=== PATIENT | female | born 1975 | race African-American/Black ===

== ENCOUNTER 2017-06-01 16:28 | Inpatient (IN) | payer BC ==
[~2017-06-01] VITALS: Ht 165.1 cm; Wt 81.6 kg
[2017-06-01 17:09] VITALS: BP 125/68
[2017-06-01 17:17] LABS: APPEARANCE,URINE CLEAR; KETONES,URINE 2+ (NEGATIVE); LEUKOCYTE ESTERASE ,URINE 2+ (NEGATIVE); MEAN CORPUSCULAR HEMOGLOBIN 21.8 PG (27.0-31.0); MEAN CORPUSCULAR HGB CONC 31.3 G/DL (32.0-36.0); MEAN CORPUSCULAR VOLUME 70 FL (80-99); MEAN PLATELET VOLUME 10.2 FL (6.5-10.1); NITRITE,URINE NEGATIVE (NEGATIVE); PH,URINE 6.5 (4.5-8.0); PLATELET COUNT 188 K/UL (150-450); PROTEIN,URINE 3+ (NEGATIVE); UROBILINOGEN,URINE 1 MG/DL (0.0-1.0); WHITE BLOOD COUNT 18.4 K/UL (4.8-10.8)
--- NOTE | 2017-06-01 17:30 | Emergency Room Report ---
History of Present Illness General Chief Complaint: Abdominal Pain Source: Patient Present Illness HPI [id number] s/p recent embolectomy done 05/29 for uterine fibroids sent for post-op pain. Patient denies nausea/vomiting, fever/chills, diarrhea Dr Ortiz requesting labs, CTAP with IV contrast, analgesia Requests endorsement for Dr Vazquez for admission Allergies: Coded Allergies: PROCHLORPERAZINE (Verified Allergy, Unknown, 06/01/17) SHELLFISH DERIVED (Verified Allergy, Unknown, 06/01/17) Patient History Social History: Denies: alcohol use, drug use, smoking Last Menstrual Period: 04/05/17 Now: No Nursing Documentation-[facility] Past Medical History: No Stated History Review of Systems All Other Systems: negative except mentioned in HPI Physical Exam Vital Signs Date Time Temp Pulse Resp B/P Pulse Ox O2 Delivery O2 Flow Rate FiO2 06/01/17 16:31 98.1 93 15 138/71 98 Room Air Sp02 EP Interpretation: reviewed, normal General Appearance: normal inspection, well appearing, no apparent distress, alert, GCS 15, non-toxic Head: normocephalic, atraumatic Eyes: bilateral eye EOMI, bilateral eye PERRL ENT: normal ENT inspection, hearing grossly normal, normal voice Neck: normal inspection, full range of motion, supple, no bony tend Respiratory: normal inspection, lungs clear, normal breath sounds, no respiratory distress, no retraction, no wheezing Cardiovascular #1: regular rate, rhythm, no edema Gastrointestinal: normal inspection, normal bowel sounds, non tender, soft, no guarding, no hernia, other - Right groin: post-op scar noted. Healing well. No infection. Steri strips in place Genitourinary: no CVA tenderness Musculoskeletal: normal inspection, back normal, normal range of motion, Jefry' s Sign negative Neurologic: normal inspection, alert, oriented x3, responsive, educational psychology professor III-XII nml as tested, motor strength/tone normal, speech normal Psychiatric: normal inspection, judgement/insight normal, mood/affect normal Skin: normal inspection, normal color, no rash Lymphatic: normal inspection Medical Decision Making Diagnostic Impression: Primary Impression: Abdominal pain Qualified Codes: R10.84 - Generalized abdominal pain Additional Impressions: KYLEIGH (acute kidney injury) Hypokalemia ER Course Abd pain post-emblectomy - VSS. Afebrile. - Abd exam non-focal. - Labs: Leuks 18K. HypoK repleted. UA with hematuria. No raquel UTI. - Elevated leuks but vitals stable, non septic appearing. - CTAP: Done withOUT IV contrast . Patient has solitary kidney. Having "CT with IV contrast soon for another reason." Refused contrast. Results: No abscess. Normal post-op changes. - Empiric Abx given. Blood Cx pending - Dr Ortiz informed of results. Endorsed to Dr Vazquez for med/surg admit at 630pm Last Vital Signs Date Time Temp Pulse Resp B/P Pulse Ox O2 Delivery O2 Flow Rate FiO2 06/01/17 17:09 98.1 83 15 125/68 98 Room Air Status: improved Disposition: ADMITTED INPATIENT Condition: Serious ENZO MALONEY M.D. Jun 01, 2017 17:30
[2017-06-01] MEDS ORDERED: Vancomycin 1.5 GM in D5W 325 ML IVPB STA (17:31)
[2017-06-01 17:33] LABS: BACTERIA,URINE FEW /HPF; SQUAMOUS EPITHELIAL CELL,UR FEW /LPF (NONE/OCC)
[2017-06-01] MEDS ORDERED: Zosyn 3.375gm inj ONE (17:36)
[2017-06-01 17:44] LABS: ALANINE AMINOTRANSFERASE 9 U/L (3-33); ANION GAP 12 (5-15); ASPARTATE AMINO TRANSFERASE 12 U/L (5-40); CALCIUM 9.2 mg/dL (8.6-10.2); CARBON DIOXIDE 28 mEQ/L (20-30); CHLORIDE 97 mEQ/L (98-107); CREATININE 1.1 mg/dL (0.5-0.9); GLOMERULAR FILTRATION RATE > 60 mL/min (>60); HEMOLYSIS 0; LIPASE 30 U/L (< 60); SODIUM 137 mEQ/L (135-145); TOTAL PROTEIN 7.3 g/dL (6.6-8.7)
[2017-06-01] MEDS ORDERED: Piperacillin/Tazobactam 3.375 GM in NS 110 ML IVPB ONE (17:45)
[2017-06-01] MEDS ORDERED: Vancomycin 750mg Inj IVPB ONE (17:46)
[2017-06-01] MEDS ORDERED: KCl 10% 40mEq/30ml liquid ORAL ONE (18:30)
[2017-06-01 18:39] VITALS: BP 129/73
[2017-06-01] MEDS ORDERED: OXYCODONE-ACET1 EAC3 ORAL (18:39)
[2017-06-01] MEDS ORDERED: KETOROLAC TROME10 MG PO (18:39)
[2017-06-01] MEDS ORDERED: AMOX TR-K CLV1 EAC2 ORAL (18:39)
[2017-06-01] MEDS ORDERED: MIRALAX17 G2 ORAL (18:39)
[2017-06-01 19:11] LABS: ANISOCYTOSIS 1+; BAND NEUTROPHILS % (MANUAL) 2 % (0-8); BASOPHILS % (MANUAL) 0 % (0-2); EOSINOPHILS % (MANUAL) 1 % (0-3); HYPOCHROMASIA 1+; LYMPHOCYTES % (MANUAL) 19 % (20-45); NEUTROPHILS % (MANUAL) 75 % (45-75); PLATELET ESTIMATE ADEQUATE; PLATELET MORPHOLOGY NORMAL; TOTAL CELLS COUNTED 100
[2017-06-01] MEDS: Norco 5mg/325mg tab ORAL PRN (19:12)
[2017-06-01] MEDS ORDERED: D5NS 1,000 ML IV SCH (19:30)
[2017-06-01 20:00] VITALS: BP_SYST 111; BP_SYST 137; BP_DIAS 52; BP_DIAS 82
[2017-06-01] MEDS ORDERED: HYDROmorphone 1mg/ml Carpuject IVP PRN ×2 (20:00→21:00)
[2017-06-01] MEDS ORDERED: Zosyn 3.375gm q8h **Extended infusion IVPB SCH ×2 (23:00)
[2017-06-01] MEDS: Norco 10mg/325mg tab ORAL PRN (23:13)
[2017-06-01] MEDS: Potassium Chloride 30 MEQ in Dextrose 5%/Lactated Ringer's 1,000 ML IV SCH (23:16)
[2017-06-02] VITALS: BP 122/72
[2017-06-02] MEDS ORDERED: ceFAZolin sod 1 GM in D5W 55 ML IVPB SCH ×2
[2017-06-02 04:00] VITALS: BP 127/82
[2017-06-02] MEDS: Potassium Chloride 30 MEQ in Dextrose 5%/Lactated Ringer's 1,000 ML IV SCH ×2 (05:15→11:32)
[2017-06-02] MEDS ORDERED: Vancomycin 1gm/D5W 275ml IVPB SCH ×2 (06:00)
--- NOTE | 2017-06-02 07:26 | Consultation ---
Consult Note Consult Note patient seen and examined see full dictation thanks CHAGO BROWNING Jun 02, 2017 07:26
[2017-06-02 07:28] LABS: MEAN CORPUSCULAR HEMOGLOBIN 21.8 PG (27.0-31.0); MEAN CORPUSCULAR HGB CONC 31.1 G/DL (32.0-36.0); MEAN CORPUSCULAR VOLUME 70 FL (80-99); MEAN PLATELET VOLUME 10.9 FL (6.5-10.1); PLATELET COUNT 196 K/UL (150-450); RED BLOOD COUNT 5.09 M/UL (4.20-5.40); RED CELL DISTRIBUTION WIDTH 13.2 % (11.6-14.8); WHITE BLOOD COUNT 18.8 K/UL (4.8-10.8)
[2017-06-02] MEDS ORDERED: Metoclopramide 10mg/2ml Inj IVP PRN (07:30)
[2017-06-02 07:48] LABS: ALBUMIN/GLOBULIN RATIO 1.1 (1.0-2.7); CALCIUM 9.1 mg/dL (8.6-10.2); CREATININE 2.2 mg/dL (0.5-0.9); GLOMERULAR FILTRATION RATE 29.7 mL/min (>60); POTASSIUM 3.7 mEQ/L (3.4-4.9)
[2017-06-02] MEDS: Norco 5mg/325mg tab ORAL PRN ×2 (07:50→11:59)
[2017-06-02 07:51] LABS: THYROID STIMULATING HORMONE 0.759 uIU/mL (0.300-4.500)
[2017-06-02] MEDS: Zosyn 3.375gm q8h **Extended infusion IVPB SCH ×6 (08:00→23:33)
[2017-06-02] MEDS ORDERED: Miralax 17gm pkt ORAL PRN (08:30)
[2017-06-02 08:36] VITALS: BP 143/75
--- NOTE | 2017-06-02 08:40 | General Surgery Progress Note ---
General Surgery-Progress Note Subjective Day of Surgery: may 29 Reason for Consult abdominal pain, nausea Procedure Performed uterine artery embolization Symptoms: improved, tolerating diet, voiding well, passing flatus Additional Comments had BM yesterday, some nausea today Objective Last 24 Hour Vital Signs Date Time Temp Pulse Resp B/P Pulse Ox O2 Delivery O2 Flow Rate FiO2 06/02/17 04:00 98.4 74 18 127/82 98 Room Air 06/02/17 00:12 98.1 06/02/17 00:00 98.7 72 18 122/72 96 Room Air 06/01/17 20:11 98.1 06/01/17 20:00 98.8 78 18 137/82 97 Room Air 06/01/17 20:00 98.4 61 18 111/52 99 Room Air 06/01/17 18:55 98.1 81 16 129/73 98 Room Air 06/01/17 18:39 98.1 81 16 129/73 98 Room Air 06/01/17 17:09 98.1 83 15 125/68 98 Room Air 06/01/17 16:31 98.1 93 15 138/71 98 Room Air I&O Intake and Output 06/01/17 06/02/17 19:00 07:00 Intake Total 1100.0 ml Balance 1100.0 ml Intake Oral 840 ml IV Total 260.0 ml # Voids 1 2 Dressing: dry Wound: clean Drains: none Cardiovascular: RSR Respiratory: clear Abdomen: soft, flat, scaphoid, tenderness, present bowel sounds Extremities: no edema, no tenderness, no cyanosis, pulses Laboratory Tests Test 06/01/17 16:50 06/02/17 06:50 White Blood Count 18.4 K/UL (4.8-10.8) H 18.8 K/UL (4.8-10.8) H Red Blood Count 5.10 M/UL (4.20-5.40) 5.09 M/UL (4.20-5.40) Hemoglobin 11.1 G/DL (12.0-16.0) L 11.1 G/DL (12.0-16.0) L Hematocrit 35.5 % (37.0-47.0) L 35.6 % (37.0-47.0) L Mean Corpuscular Volume 70 FL (80-99) L 70 FL (80-99) L Mean Corpuscular Hemoglobin 21.8 PG (27.0-31.0) L 21.8 PG (27.0-31.0) L Mean Corpuscular Hemoglobin Concent 31.3 G/DL (32.0-36.0) L 31.1 G/DL (32.0-36.0) L Red Cell Distribution Width 13.0 % (11.6-14.8) 13.2 % (11.6-14.8) Platelet Count 188 K/UL (150-450) 196 K/UL (150-450) Mean Platelet Volume 10.2 FL (6.5-10.1) H 10.9 FL (6.5-10.1) H Neutrophils (%) (Auto) % (45.0-75.0) % (45.0-75.0) Lymphocytes (%) (Auto) % (20.0-45.0) % (20.0-45.0) Monocytes (%) (Auto) % (1.0-10.0) % (1.0-10.0) Eosinophils (%) (Auto) % (0.0-3.0) % (0.0-3.0) Basophils (%) (Auto) % (0.0-2.0) % (0.0-2.0) Differential Total Cells Counted 100 Neutrophils % (Manual) 75 % (45-75) Pending Lymphocytes % (Manual) 19 % (20-45) L Pending Monocytes % (Manual) 3 % (1-10) Eosinophils % (Manual) 1 % (0-3) Basophils % (Manual) 0 % (0-2) Band Neutrophils 2 % (0-8) Platelet Estimate Adequate Pending Platelet Morphology Normal Pending Hypochromasia 1+ Anisocytosis 1+ Urine Color Pale yellow Urine Appearance Clear Urine pH 6.5 (4.5-8.0) Urine Specific [place] 1.010 (1.005-1.035) Urine Protein 3+ (NEGATIVE) H Urine Glucose (UA) Negative (NEGATIVE) Urine Ketones 2+ (NEGATIVE) H Urine Occult Blood 5+ (NEGATIVE) H Urine Nitrite Negative (NEGATIVE) Urine Bilirubin Negative (NEGATIVE) Urine Urobilinogen 1 MG/DL (0.0-1.0) H Urine Leukocyte Esterase 2+ (NEGATIVE) H Urine RBC 5-10 /HPF (0 - 2) H Urine WBC 2-4 /HPF (0 - 2) Urine Squamous Epithelial Cells Few /LPF (NONE/OCC) Urine Bacteria Few /HPF (NONE) Urine HCG, Qualitative Negative Sodium Level 137 mEQ/L (135-145) 136 mEQ/L (135-145) Potassium Level 3.0 mEQ/L (3.4-4.9) L 3.7 mEQ/L (3.4-4.9) Chloride Level 97 mEQ/L (98-107) L 98 mEQ/L (98-107) Carbon Dioxide Level 28 mEQ/L (20-30) 28 mEQ/L (20-30) Anion Gap 12 (5-15) 10 (5-15) Blood Urea Nitrogen 6 mg/dL (7-23) L 9 mg/dL (7-23) Creatinine 1.1 mg/dL (0.5-0.9) H 2.2 mg/dL (0.5-0.9) #H Estimat Glomerular Filtration Rate > 60 mL/min (>60) 29.7 mL/min (>60) Glucose Level 111 mg/dL (74-106) H 113 mg/dL (74-106) H Calcium Level 9.2 mg/dL (8.6-10.2) 9.1 mg/dL (8.6-10.2) Total Bilirubin 0.6 mg/dL (0.0-1.2) 0.7 mg/dL (0.0-1.2) Aspartate Amino Transf (AST/SGOT) 12 U/L (5-40) 15 U/L (5-40) Alanine Aminotransferase (ALT/SGPT) 9 U/L (3-33) 9 U/L (3-33) Alkaline Phosphatase 73 U/L (35-104) 71 U/L (35-104) Total Protein 7.3 g/dL (6.6-8.7) 7.0 g/dL (6.6-8.7) Albumin 3.8 g/dL (3.5-5.2) 3.7 g/dL (3.5-5.2) Globulin 3.5 g/dL 3.3 g/dL Albumin/Globulin Ratio 1.0 (1.0-2.7) 1.1 (1.0-2.7) Lipase 30 U/L (< 60) Thyroid Stimulating Hormone (TSH) 0.759 uIU/mL (0.300-4.500) Additional Comments afebrile, leukocytosis common post uae Assessment Post-op Diagnosis pain controlled c oral meds, nausea persists, controlled now Plan Additional Comments laxatives, toradol Andrez Ortiz MD Jun 02, 2017 08:40
[2017-06-02] MEDS ORDERED: Ketorolac 30mg Inj IV SCH (09:00)
[2017-06-02 09:10] LABS: BAND NEUTROPHILS % (MANUAL) 0 % (0-8); BASOPHILS % (MANUAL) 0 % (0-2); EOSINOPHILS % (MANUAL) 1 % (0-3); HYPOCHROMASIA 1+; LYMPHOCYTES % (MANUAL) 5 % (20-45); MICROCYTES 1+; NEUTROPHILS % (MANUAL) 92 % (45-75); PLATELET ESTIMATE ADEQUATE; PLATELET MORPHOLOGY NORMAL; TOTAL CELLS COUNTED 100
[2017-06-02] MEDS: Docusate 100mg cap ORAL SCH ×2 (09:29→17:43)
--- NOTE | 2017-06-02 11:12 | Diagnostic Imaging Report ---
Indication: Pain post uterine fibroid embolization Technique: Continuous helical scanning was performed without any contrast material from the diaphragms through the pelvis . Axial, sagittal, and coronal images were generated. Dose: Total Dose Length Product - DLP [address] Dose Index - CTDIvol(s) 15.91 mGy. Comparison: None Findings: The liver, gallbladder, spleen, and pancreas appear normal. Adrenal glands are unremarkable. Right kidney is surgically absent. Left kidney is normal. Aorta and inferior vena cava are unremarkable with the exception of minimal calcification in the aorta. The bowel is normal caliber. The uterus is enlarged. There are calcifications as well as high density material within fibroids. The uterus is multilobulated. Some air is also noted within the high density fibroids. The bladder is unremarkable. The appendix is normal. No abnormal fluid collections. There are air-fluid levels in the rectum and colon. Impression: Uterine fibroids. Changes within the uterus consistent with recent uterine fibroid embolization. Air-fluid levels in the colon. This may be related to diarrhea. Solitary left kidney. Right kidney is surgically absent. There are at this agrees with pulmonary reading. The CT scanner at [facility] is accredited by the [employer] and the scans are performed using protocols designed to limit radiation exposure to as low as reasonably achievable to attain images of sufficient resolution adequate for diagnostic evaluation.
--- NOTE | 2017-06-02 11:16 | Consultation ---
DATE OF CONSULTATION: 06/02/2017 GASTROENTEROLOGY CONSULTATION CHIEF COMPLAINT: Nausea, vomiting, and abdominal pain. HISTORY OF PRESENT ILLNESS: This is a very pleasant 41-year-old female with history of uterine fibroids, status post embolization on Thursday, on 05/29/2017. She said she has been having nausea and vomiting after the procedure. Apparently, the patient could not tolerate the nausea, vomiting, and was getting dehydrated and was admitted to the emergency room yesterday. PAST MEDICAL HISTORY: History of uterine fibroids. PAST SURGICAL HISTORY: History of right kidney donation. ALLERGIES: To shellfish and prochlorperazine. MEDICATIONS: Please see medication reconciliation list. FAMILY HISTORY: Noncontributory. SOCIAL HISTORY: The patient denies any tobacco, alcohol, or drug abuse. REVIEW OF SYSTEMS: A 10-point review of system was performed and pertinent positives in history of present illness. PHYSICAL EXAMINATION: VITAL SIGNS: Temperature is 98.4 degrees, pulse is 74, respiration 18, and blood pressure is 127/82. HEENT: Normocephalic and atraumatic. Sclerae anicteric. NECK: Supple. No lymphadenopathy. CARDIOVASCULAR: Regular rate and rhythm. Plus S1 and S2. No obvious murmur. LUNGS: Decreased breath sounds bilaterally. ABDOMEN: Bowel sounds are present. There is a minimal tenderness to palpation in the suprapubic area. No rebound. No guarding. No peritoneal signs. EXTREMITIES: No cyanosis, no clubbing, and no edema. LABORATORY DATA: Sodium 137, potassium 3.0, BUN is 6, and creatinine is 1.1. White count is 18.4, hemoglobin 11, hematocrit 35, and platelet count is 188,000. ASSESSMENT: This is a pleasant 41-year-old female with postuterine fibroid embolization with persistent nausea and vomiting. PLAN: Change the Zofran from as needed to round the clock. Continue on clear liquid diet. Add Reglan as needed for breakthrough nausea and vomiting. Order abdominal x-ray. Start the patient on Colace and MiraLax. Given microcytic anemia, we will do anemia workup including iron panel and replete iron if needed. Pain management follow all the kind of recommendations. Lamont Vosoghi, M.D. DR: FLOR JOB#: [id number] CC:
[2017-06-02 11:41] VITALS: BP 128/78
[2017-06-02 14:54] LABS: CALCIUM 8.7 mg/dL (8.6-10.2); CREATININE 3.4 mg/dL (0.5-0.9); GLOMERULAR FILTRATION RATE 17.9 mL/min (>60); POTASSIUM 3.5 mEQ/L (3.4-4.9)
[2017-06-02 15:22] VITALS: BP 123/78
[2017-06-02] MEDS: Norco 10mg/325mg tab ORAL PRN (15:59)
--- NOTE | 2017-06-02 17:30 | History and Physical Report ---
DATE OF ADMISSION: 06/02/2017 INTERNAL MEDICINE EVALUATION HISTORY OF PRESENT ILLNESS: The patient is a very pleasant 41-year-old woman who came into the hospital because of nausea, vomiting, and pelvic pain. She underwent uterine artery embolization on May 29, 2017 for her fibroid uterus. Following surgery, she has had persistent pain and nausea with some vomiting. Admission was arranged. She was seen in the emergency department and found to have low-grade fever up to 100.4, and white count was elevated at 18,000. PAST MEDICAL HISTORY: She denies hypertension, hyperlipidemia, diabetes or any other major health problems. She did donate a kidney to her sister who had renal failure. Of note, her creatinine was 1.1 on admission yesterday, but today is 2.2. She has been taking Toradol for pain and was also given vancomycin since admission. ALLERGIES: Prochlorperazine and shellfish. REVIEW OF SYSTEMS: Otherwise unremarkable. MEDICATIONS: At home, she has been taking Augmentin, Toradol, Percocet, and MiraLAX. PHYSICAL EXAMINATION: GENERAL: The patient is alert and responds appropriately. There is no fever. She appears well developed and well nourished. She is not in distress. VITAL SIGNS: Show normal findings. HEENT: Head is normocephalic. NECK: No jugular venous distention. CHEST: Clear. CARDIAC: Rhythm is regular. ABDOMEN: Soft. There is no significant tenderness. I do not feel any masses in the pelvis on anterior examination and I do not feel the liver or spleen. EXTREMITIES: No clubbing, cyanosis, or edema. LABORATORY DATA: White count is 18,800. Hemoglobin is 11.1. There is a left shift. Platelets are normal. Creatinine is 2.2 as mentioned. Blood sugar 113. Urinalysis shows 2 to 4 white cells and a few red cells. IMPRESSION: 1. Status post uterine artery embolization. 2. Postoperative pain, nausea and vomiting. 3. Acute kidney injury with creatinine 2.2. 4. Status post nephrectomy, as a renal donor. PLAN: The patient's Toradol and vancomycin will be discontinued. We will continue Zosyn and intravenous fluids. A stat repeat chemistry panel will be obtained. If it remains significantly elevated then nephrology consultation will be requested. We will continue narcotics as needed for pain and antiemetics and laxatives. Valente Vazquez M.D. DR: JERRELL JOB#: [id number] CC: Andrez Ortiz M.D. MTDNadiya
[2017-06-02] MEDS: Sodium Bicarbonate 100 ML in D5W 1000ml 1,000 ML IV SCH ×2 (19:20→22:54)
[2017-06-02 20:00] VITALS: BP 135/75
[2017-06-02] MEDS ORDERED: Miralax 17gm pkt ORAL SCH (21:00)
[2017-06-03 04:00] VITALS: BP 135/80
[2017-06-03] MEDS: Sodium Bicarbonate 100 ML in D5W 1000ml 1,000 ML IV SCH ×3 (04:11→13:30)
[2017-06-03 05:17] LABS: CREATININE, RANDOM URINE 52.7 mg/dL
[2017-06-03 07:52] LABS: BASOPHILS % (AUTO) 0.6 % (0.0-2.0); EOSINOPHILS % (AUTO) 1.1 % (0.0-3.0); LYMPHOCYTES % (AUTO) 9.3 % (20.0-45.0); MEAN CORPUSCULAR HEMOGLOBIN 21.5 PG (27.0-31.0); MEAN CORPUSCULAR HGB CONC 30.5 G/DL (32.0-36.0); MEAN CORPUSCULAR VOLUME 70 FL (80-99); MEAN PLATELET VOLUME 10.9 FL (6.5-10.1); MONOCYTES % (AUTO) 7.6 % (1.0-10.0); NEUTROPHILS % (AUTO) 81.4 % (45.0-75.0); PLATELET COUNT 177 K/UL (150-450); RED BLOOD COUNT 4.52 M/UL (4.20-5.40); RED CELL DISTRIBUTION WIDTH 12.9 % (11.6-14.8); WHITE BLOOD COUNT 17.3 K/UL (4.8-10.8)
[2017-06-03 08:00] VITALS: BP 129/91
[2017-06-03 08:12] LABS: ALBUMIN/GLOBULIN RATIO 0.9 (1.0-2.7); CALCIUM 8.3 mg/dL (8.6-10.2); CREATININE 5.3 mg/dL (0.5-0.9); GLOMERULAR FILTRATION RATE 10.8 mL/min (>60); POTASSIUM 3.3 mEQ/L (3.4-4.9); TOTAL PROTEIN 6.3 g/dL (6.6-8.7)
--- NOTE | 2017-06-03 08:49 | General Progress Note ---
Assessment/Plan Assessment/Plan 1. Status post uterine artery embolization. 2. Postoperative pain, nausea and vomiting. 3. Acute kidney injury with creatinine 2.2. 4. Status post nephrectomy, as a renal donor. Cr up to 5.3 with low urine output c/w acute renal failure CPK normal disc w Dr Ortiz and Dr Arizmendi (nephrology) who will see her advised patient of lab results IVF adjusted by Dr Arizmendi; I advised him of low output may need dialysis, she is aware Subjective Gastrointestinal/Abdominal: Reports: abdominal pain - loose BM, vomiting Genitourinary: Reports: other - low urine output Allergies: Coded Allergies: PROCHLORPERAZINE (Verified Allergy, Unknown, 06/01/17) SHELLFISH DERIVED (Verified Allergy, Unknown, 06/01/17) Objective Last 24 Hour Vital Signs Date Time Temp Pulse Resp B/P Pulse Ox O2 Delivery O2 Flow Rate FiO2 06/03/17 04:00 97.7 70 18 135/80 100 Room Air 06/02/17 20:00 97.9 69 18 135/75 95 Room Air 06/02/17 15:22 98.2 65 20 123/78 99 Room Air 06/02/17 11:41 98.4 73 20 128/78 98 Room Air Intake and Output 06/02/17 06/03/17 19:00 07:00 Intake Total 660 ml 1785.0 ml Balance 660 ml 1785.0 ml Intake Oral 660 ml 300 ml IV Total 1485.0 ml # Voids 3 3 Laboratory Tests 06/02/17 14:25: Sodium Level 132L, Potassium Level 3.5, Chloride Level 95L, Carbon Dioxide Level 24, Anion Gap 13, Blood Urea Nitrogen 11, Creatinine 3.4#H, Estimat Glomerular Filtration Rate 17.9, Glucose Level 106, Calcium Level 8.7, Total Creatine Kinase 43 06/03/17 02:00: Urine Eosinophils Few seen, Urine Osmolality [Pending], Urine Random Sodium 17, Urine Creatinine 52.7 06/03/17 05:25: Sodium Level 128L, Potassium Level 3.3L, Chloride Level 88L, Carbon Dioxide Level 27, Anion Gap 13, Blood Urea Nitrogen 15, Creatinine 5.3#H, Estimat Glomerular Filtration Rate 10.8, Glucose Level 88, Calcium Level 8.3L, White Blood Count 17.3H, Red Blood Count 4.52, Hemoglobin 9.7L, Hematocrit 31.8L, Mean Corpuscular Volume 70L, Mean Corpuscular Hemoglobin 21.5L, Mean Corpuscular Hemoglobin Concent 30.5L, Red Cell Distribution Width 12.9, Platelet Count 177, Mean Platelet Volume 10.9H, Neutrophils (%) (Auto) 81.4H, Lymphocytes (%) (Auto) 9.3L, Monocytes (%) (Auto) 7.6, Eosinophils (%) (Auto) 1.1, Basophils (%) (Auto) 0.6, Uric Acid 4.4, Iron Level 18L, Total Iron Binding Capacity 189L, Percent Iron Saturation 10L, Unsaturated Iron Binding 171 , Total Bilirubin 0.7, Aspartate Amino Transf (AST/SGOT) 20, Alanine Aminotransferase (ALT/SGPT) 11, Alkaline Phosphatase 75, Total Protein 6.3L, Albumin 3.1L, Globulin 3.2, Albumin/Globulin Ratio 0.9L Height (Feet): 5 Height (Inches): 5.00 Weight (Pounds): 180 General Appearance: no apparent distress Cardiovascular: normal rate Respiratory/Chest: lungs clear Abdomen: non tender, soft, no organomegaly, no mass Extremities: non-tender, normal inspection, no calf tenderness Edema: no edema noted Generalized Neurologic: responsive, normal mood/affect ENZO MAURER Jun 03, 2017 08:49
[2017-06-03] MEDS: Docusate 100mg cap ORAL SCH ×2 (09:00→17:53)
[2017-06-03 10:20] LABS: MAGNESIUM 1.2 mg/dL (1.7-2.5); PHOSPHORUS 3.7 mg/dL (2.5-4.8)
[2017-06-03] MEDS ORDERED: Metoclopramide 10mg/2ml Inj IVP PRN (10:30)
--- NOTE | 2017-06-03 11:27 | General Surgery Progress Note ---
General Surgery-Progress Note Subjective Day of Surgery: may 29 Procedure Performed uterine artery embolization Chief Complaint: post op pain Symptoms: improved, tolerating diet, voiding well, passing flatus, BM Objective Last 24 Hour Vital Signs Date Time Temp Pulse Resp B/P Pulse Ox O2 Delivery O2 Flow Rate FiO2 06/03/17 08:00 97.9 73 18 129/91 95 Room Air 06/03/17 04:00 97.7 70 18 135/80 100 Room Air 06/02/17 20:00 97.9 69 18 135/75 95 Room Air 06/02/17 15:22 98.2 65 20 123/78 99 Room Air 06/02/17 11:41 98.4 73 20 128/78 98 Room Air I&O Intake and Output 06/02/17 06/03/17 19:00 07:00 Intake Total 660 ml 1785.0 ml Balance 660 ml 1785.0 ml Intake Oral 660 ml 300 ml IV Total 1485.0 ml # Voids 3 3 Laboratory Tests Test 06/02/17 14:25 06/03/17 02:00 06/03/17 05:25 Sodium Level 132 mEQ/L (135-145) L 128 mEQ/L (135-145) L Potassium Level 3.5 mEQ/L (3.4-4.9) 3.3 mEQ/L (3.4-4.9) L Chloride Level 95 mEQ/L (98-107) L 88 mEQ/L (98-107) L Carbon Dioxide Level 24 mEQ/L (20-30) 27 mEQ/L (20-30) Anion Gap 13 (5-15) 13 (5-15) Blood Urea Nitrogen 11 mg/dL (7-23) 15 mg/dL (7-23) Creatinine 3.4 mg/dL (0.5-0.9) #H 5.3 mg/dL (0.5-0.9) #H Estimat Glomerular Filtration Rate 17.9 mL/min (>60) 10.8 mL/min (>60) Glucose Level 106 mg/dL (74-106) 88 mg/dL (74-106) Calcium Level 8.7 mg/dL (8.6-10.2) 8.3 mg/dL (8.6-10.2) L Total Creatine Kinase 43 U/L (26-140) Urine Eosinophils Few seen Urine Osmolality Pending Urine Random Sodium 17 mmol/L Urine Creatinine 52.7 mg/dL White Blood Count 17.3 K/UL (4.8-10.8) H Red Blood Count 4.52 M/UL (4.20-5.40) Hemoglobin 9.7 G/DL (12.0-16.0) L Hematocrit 31.8 % (37.0-47.0) L Mean Corpuscular Volume 70 FL (80-99) L Mean Corpuscular Hemoglobin 21.5 PG (27.0-31.0) L Mean Corpuscular Hemoglobin Concent 30.5 G/DL (32.0-36.0) L Red Cell Distribution Width 12.9 % (11.6-14.8) Platelet Count 177 K/UL (150-450) Mean Platelet Volume 10.9 FL (6.5-10.1) H Neutrophils (%) (Auto) 81.4 % (45.0-75.0) H Lymphocytes (%) (Auto) 9.3 % (20.0-45.0) L Monocytes (%) (Auto) 7.6 % (1.0-10.0) Eosinophils (%) (Auto) 1.1 % (0.0-3.0) Basophils (%) (Auto) 0.6 % (0.0-2.0) Uric Acid 4.4 mg/dL (3.0-7.5) Phosphorus Level 3.7 mg/dL (2.5-4.8) Magnesium Level 1.2 mg/dL (1.7-2.5) L Iron Level 18 ug/dL (37-145) L Total Iron Binding Capacity 189 ug/dL (250-400) L Percent Iron Saturation 10 % (15-50) L Unsaturated Iron Binding 171 ug/dL (112-346) Total Bilirubin 0.7 mg/dL (0.0-1.2) Aspartate Amino Transf (AST/SGOT) 20 U/L (5-40) Alanine Aminotransferase (ALT/SGPT) 11 U/L (3-33) Alkaline Phosphatase 75 U/L (35-104) Total Protein 6.3 g/dL (6.6-8.7) L Albumin 3.1 g/dL (3.5-5.2) L Globulin 3.2 g/dL Albumin/Globulin Ratio 0.9 (1.0-2.7) L Imaging renal ultrasound today, no acute findings, renal function imaging pending Assessment Post-op Diagnosis pain controlled c oral meds, nausea persists, controlled now Additional Comments no nausea today, decreased pain. aware of high creatinine. Plan Additional Comments nephrology consult c dr pulido today Andrez Ortiz MD Jun 03, 2017 11:27
[2017-06-03 12:00] VITALS: BP 136/94
--- NOTE | 2017-06-03 13:17 | Diagnostic Imaging Report ---
Indication:Acute renal failure. Technique: Grayscale and duplex Doppler imaging of the kidneys performed. Comparison: None Findings: Size contour and echogenicity of the left kidney is within normal limits. No right kidney is identified. Left kidney measures 13 x 8 cm. There is no hydronephrosis. Duplex Doppler interrogation of the left kidney as well as evaluation of the left renal artery performed. The left renal artery is partially seen and by Doppler imaging and appears patent. Typical, expected low resistance flow demonstrated within the left kidney with resistive indices that are in the normal range around 0.7. Impression: Negative examination of the left kidney. There are no findings demonstrated to account for the given history of sudden onset acute renal failure. Absent right kidney.
--- NOTE | 2017-06-03 14:01 | Diagnostic Imaging Report ---
Indication: Acute renal failure. Single left kidney. Technique: 11.1 mCi of technetium 99m MAG3 was injected intravenously. Renal scan then performed with evaluation of both blood flow and cortical renal function over 30 minutes. Delayed 45 minute postinjection image also performed. Comparison: None. Correlation with recent ultrasound of the kidneys and noncontrast CT abdomen. Findings: Renal blood flow: Time activity curves show normal renal blood flow with the configuration and timing of the upstroke curve appearing after the aorta upstroke. Renal scan: There is gradual increased uptake within the solitary left kidney on the time activity curve. The upstroke is blunted and steadily increases over time, not reaching peak cortical activity during the time frame of the scan which is 30 minutes. (In normal kidneys peak activity occurs between 4 and 6 minutes). At 45 minutes, there is persistent intense activity within the left kidney with no washout or clearance of radiotracer from the cortex. No hydronephrosis demonstrated on prior studies essentially excluding obstructive nephropathy. Doppler imaging studies and the current mag 3 blood flow time activity data argue against a prerenal or vascular cause of the renal failure as there is evidence of good arterial flow to the left kidney. Therefore, the findings most likely represent intrinsic renal failure, likely acute tubular necrosis. Impression: Abnormal intrinsic renal function as described above. Based on the studies obtained thus far, pre-renal and post-renal causes of the renal failure are unlikely as discussed above.
--- NOTE | 2017-06-03 15:35 | GI Progress Note ---
Assessment/Plan Problems: (1) Uterine fibroid ICD Codes: D25.9 - Leiomyoma of uterus, unspecified SNOMED: 42159245 (2) Kidney tubular necrosis, acute ICD Codes: N17.0 - Acute kidney failure with tubular necrosis SNOMED: 70904736 (3) Iron deficiency ICD Codes: E61.1 - Iron deficiency SNOMED: 17305425 (4) Nausea & vomiting ICD Codes: R11.2 - Nausea with vomiting, unspecified SNOMED: 92991153 (5) Abdominal pain ICD Codes: R10.9 - Unspecified abdominal pain SNOMED: 72680492 Qualifiers: Qualified Codes: R10.84 - Generalized abdominal pain Status: unchanged Status Narrative Discussed with Dr. Gallo. Assessment/Plan APCT reviewed >> Air-fluid levels in the colon. This may be related to diarrhea >> dc stool softeners and laxatives iron deficiency >> venofer x 1 maintain CLD zofran ATC electrolyte correction fu labs Subjective Subjective diarrhea abdominal pain Objective Last 24 Hour Vital Signs Date Time Temp Pulse Resp B/P Pulse Ox O2 Delivery O2 Flow Rate FiO2 06/03/17 12:00 97.9 68 16 136/94 100 Room Air 06/03/17 08:00 97.9 73 18 129/91 95 Room Air 06/03/17 04:00 97.7 70 18 135/80 100 Room Air 06/02/17 20:00 97.9 69 18 135/75 95 Room Air Intake and Output 06/02/17 06/03/17 19:00 07:00 Intake Total 660 ml 1785.0 ml Balance 660 ml 1785.0 ml Intake Oral 660 ml 300 ml IV Total 1485.0 ml # Voids 3 3 Laboratory Tests Test 06/03/17 02:00 06/03/17 05:25 Urine Eosinophils Few seen Urine Osmolality Pending Urine Random Sodium 17 mmol/L Urine Creatinine 52.7 mg/dL White Blood Count 17.3 K/UL (4.8-10.8) H Red Blood Count 4.52 M/UL (4.20-5.40) Hemoglobin 9.7 G/DL (12.0-16.0) L Hematocrit 31.8 % (37.0-47.0) L Mean Corpuscular Volume 70 FL (80-99) L Mean Corpuscular Hemoglobin 21.5 PG (27.0-31.0) L Mean Corpuscular Hemoglobin Concent 30.5 G/DL (32.0-36.0) L Red Cell Distribution Width 12.9 % (11.6-14.8) Platelet Count 177 K/UL (150-450) Mean Platelet Volume 10.9 FL (6.5-10.1) H Neutrophils (%) (Auto) 81.4 % (45.0-75.0) H Lymphocytes (%) (Auto) 9.3 % (20.0-45.0) L Monocytes (%) (Auto) 7.6 % (1.0-10.0) Eosinophils (%) (Auto) 1.1 % (0.0-3.0) Basophils (%) (Auto) 0.6 % (0.0-2.0) Sodium Level 128 mEQ/L (135-145) L Potassium Level 3.3 mEQ/L (3.4-4.9) L Chloride Level 88 mEQ/L (98-107) L Carbon Dioxide Level 27 mEQ/L (20-30) Anion Gap 13 (5-15) Blood Urea Nitrogen 15 mg/dL (7-23) Creatinine 5.3 mg/dL (0.5-0.9) #H Estimat Glomerular Filtration Rate 10.8 mL/min (>60) Glucose Level 88 mg/dL (74-106) Uric Acid 4.4 mg/dL (3.0-7.5) Calcium Level 8.3 mg/dL (8.6-10.2) L Phosphorus Level 3.7 mg/dL (2.5-4.8) Magnesium Level 1.2 mg/dL (1.7-2.5) L Iron Level 18 ug/dL (37-145) L Total Iron Binding Capacity 189 ug/dL (250-400) L Percent Iron Saturation 10 % (15-50) L Unsaturated Iron Binding 171 ug/dL (112-346) Total Bilirubin 0.7 mg/dL (0.0-1.2) Aspartate Amino Transf (AST/SGOT) 20 U/L (5-40) Alanine Aminotransferase (ALT/SGPT) 11 U/L (3-33) Alkaline Phosphatase 75 U/L (35-104) Total Protein 6.3 g/dL (6.6-8.7) L Albumin 3.1 g/dL (3.5-5.2) L Globulin 3.2 g/dL Albumin/Globulin Ratio 0.9 (1.0-2.7) L Height (Feet): 5 Height (Inches): 5.00 Weight (Pounds): 180 General Appearance: no apparent distress, alert Cardiovascular: normal rate Respiratory/Chest: normal breath sounds, no respiratory distress Abdominal Exam: normal bowel sounds, non tender, soft Extremities: normal range of motion Sandie Lee N.P. Jun 03, 2017 15:34
[2017-06-03 16:00] VITALS: BP 148/77
[2017-06-03] MEDS ORDERED: KCl 10% 40mEq/30ml liquid ORAL ONE (16:00)
[2017-06-03 20:00] VITALS: BP 169/97
[2017-06-03] MEDS ORDERED: Iron Sucrose 100 MG in NS 55 ML IVPB SCH (21:00)
--- NOTE | 2017-06-03 21:15 | Consultation ---
DATE OF CONSULTATION: HISTORY OF PRESENT ILLNESS: The patient is a 41-year-old lady whom I asked to evaluate for acute kidney injury. 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 She had outpatient procedure for uterine fibroids on 05/29/2017 with pelvic arteriography and embolization. She had perioperative nausea, vomiting, abdominal pain, and low-grade fever. She has also received Toradol 10 mg q.i.d. as well as intramuscular Toradol perioperatively. The patient came to the hospital with abdominal pain on 06/01/2017 and her creatinine has gone from 1.1 to 2.2 and now 5.3 in the last several days. She has been oliguric. I ordered scans and a renal ultrasound and nuclear medicine renal scan did not show any arterial disease of the renal arteries or any hypoperfusion of the kidney and studies were consistent with acute tubular necrosis. ALLERGIES: Compazine. MEDICATIONS: Generally no medications but in the last few days she has taken Toradol, Augmentin, Zofran and in the hospital she has been on antibiotics including Zosyn and vancomycin, and she has also received iron sucrose venofer. HABITS: She is a nondrinker and nonsmoker. PAST SURGICAL HISTORY: D and C and donation of left kidney. SYSTEM REVIEW: Negative except for the abdominal pain perioperatively in the prior surgeries. PHYSICAL EXAMINATION: GENERAL: The patient is alert lady sitting up in a chair, in no acute distress. VITAL SIGNS: Temperature 99, pulse 60, respirations 20, and blood pressure 148/77. HEENT: Head, eyes ears, nose, sclerae are nonicteric. Ocular motions intact in all directions. Oral mucosa moist. NECK: No adenopathy or thyroid enlargement. LUNGS: Clear. HEART: Regular rhythm. No murmur. ABDOMEN: Soft without organomegaly or masses. There is mild lower abdominal tenderness. No rebound. EXTREMITIES: Showed trace edema. NEUROLOGIC: She is alert and oriented. Cranial nerves are intact. SKIN: Negative. Examination of toes and fingers carefully, there is no evidence of emboli. IMPRESSION: The patient still acute renal failure likely due to a combination of intravenous dye in the embolization procedure and nonsteroidal anti-inflammatory agent Toradol. She has had a rapid rise in her creatinine. There is no evidence of rhabdomyolysis. Her CK has been normal. In this setting, it appears most likely etiology is ATN due to contrast and combination with Toradol. Most likely, this will completely resolve with observation and avoiding dehydration and nephrotoxic medications. At this time, I think we can stop for prophylactic antibiotics. Blood cultures are negative. Avoid any unnecessary medications. Hydrate her gently and watch closely. Hopefully she will resolve on her own. If not, she may need dialysis and this is discussed in detail with her and her family and call has been placed to Dr. Vazquez and Dr. Ortiz. Bhaskar Arizmendi M.D. DR: Katharine JOB#: [id number] CC:
[2017-06-04 00:22] VITALS: BP 135/78
[2017-06-04 04:00] VITALS: BP 134/82
[2017-06-04 06:58] LABS: BASOPHILS % (AUTO) 0.4 % (0.0-2.0); EOSINOPHILS % (AUTO) 1.2 % (0.0-3.0); MEAN CORPUSCULAR HEMOGLOBIN 21.6 PG (27.0-31.0); MEAN CORPUSCULAR HGB CONC 31.5 G/DL (32.0-36.0); MEAN CORPUSCULAR VOLUME 69 FL (80-99); MEAN PLATELET VOLUME 11.7 FL (6.5-10.1); MONOCYTES % (AUTO) 8.4 % (1.0-10.0); NEUTROPHILS % (AUTO) 81.1 % (45.0-75.0); PLATELET COUNT 168 K/UL (150-450); RED BLOOD COUNT 4.37 M/UL (4.20-5.40); RED CELL DISTRIBUTION WIDTH 12.7 % (11.6-14.8); WHITE BLOOD COUNT 15.2 K/UL (4.8-10.8)
[2017-06-04 07:27] LABS: ALBUMIN/GLOBULIN RATIO 0.8 (1.0-2.7); CALCIUM 8.1 mg/dL (8.6-10.2); CREATININE 7.1 mg/dL (0.5-0.9); GLOMERULAR FILTRATION RATE 7.6 mL/min (>60); MAGNESIUM 2.3 mg/dL (1.7-2.5); POTASSIUM 3.3 mEQ/L (3.4-4.9); TOTAL PROTEIN 6.1 g/dL (6.6-8.7)
[2017-06-04 07:31] LABS: PHOSPHORUS 4.9 mg/dL (2.5-4.8)
--- NOTE | 2017-06-04 07:41 | General Surgery Progress Note ---
General Surgery-Progress Note Subjective Procedure Performed uterine artery embolization Chief Complaint: abdominal pain Symptoms: improved, tolerating diet, voiding well, passing flatus, BM Objective Last 24 Hour Vital Signs Date Time Temp Pulse Resp B/P Pulse Ox O2 Delivery O2 Flow Rate FiO2 06/04/17 04:00 96.6 59 18 134/82 100 Room Air 06/04/17 00:22 97.5 63 18 135/78 99 Room Air 06/03/17 21:10 163/103 06/03/17 20:00 98.8 68 17 169/97 98 Room Air 06/03/17 16:00 99.0 60 20 148/77 99 Room Air 06/03/17 12:00 97.9 68 16 136/94 100 Room Air 06/03/17 08:00 97.9 73 18 129/91 95 Room Air I&O Intake and Output 06/03/17 06/04/17 19:00 07:00 Intake Total 600 ml 950 ml Output Total 300 ml Balance 600 ml 650 ml Intake Oral 600 ml 240 ml IV Total 710 ml Output Urine Total 300 ml # Voids 3 # Bowel Movements 2 2 Dressing: dry Wound: clean Drains: none Cardiovascular: RSR Respiratory: clear Abdomen: soft, flat, scaphoid, non-tender, present bowel sounds Extremities: no edema, no tenderness, no cyanosis Laboratory Tests Test 06/04/17 05:25 White Blood Count 15.2 K/UL (4.8-10.8) H Red Blood Count 4.37 M/UL (4.20-5.40) Hemoglobin 9.4 G/DL (12.0-16.0) L Hematocrit 30.0 % (37.0-47.0) L Mean Corpuscular Volume 69 FL (80-99) L Mean Corpuscular Hemoglobin 21.6 PG (27.0-31.0) L Mean Corpuscular Hemoglobin Concent 31.5 G/DL (32.0-36.0) L Red Cell Distribution Width 12.7 % (11.6-14.8) Platelet Count 168 K/UL (150-450) Mean Platelet Volume 11.7 FL (6.5-10.1) H Neutrophils (%) (Auto) 81.1 % (45.0-75.0) H Lymphocytes (%) (Auto) 9.0 % (20.0-45.0) L Monocytes (%) (Auto) 8.4 % (1.0-10.0) Eosinophils (%) (Auto) 1.2 % (0.0-3.0) Basophils (%) (Auto) 0.4 % (0.0-2.0) Sodium Level 121 mEQ/L (135-145) L Potassium Level 3.3 mEQ/L (3.4-4.9) L Chloride Level 83 mEQ/L (98-107) L Carbon Dioxide Level 26 mEQ/L (20-30) Anion Gap 12 (5-15) Blood Urea Nitrogen 19 mg/dL (7-23) Creatinine 7.1 mg/dL (0.5-0.9) H Estimat Glomerular Filtration Rate 7.6 mL/min (>60) Glucose Level 98 mg/dL (74-106) Calcium Level 8.1 mg/dL (8.6-10.2) L Phosphorus Level 4.9 mg/dL (2.5-4.8) H Magnesium Level 2.3 mg/dL (1.7-2.5) Total Bilirubin 0.4 mg/dL (0.0-1.2) Aspartate Amino Transf (AST/SGOT) 17 U/L (5-40) Alanine Aminotransferase (ALT/SGPT) 10 U/L (3-33) Alkaline Phosphatase 98 U/L (35-104) Total Creatine Kinase 78 U/L (26-140) Total Protein 6.1 g/dL (6.6-8.7) L Albumin 2.8 g/dL (3.5-5.2) L Globulin 3.3 g/dL Albumin/Globulin Ratio 0.8 (1.0-2.7) L Additional Comments creatinine now 7.1, up from 5.9, will follow closely Assessment Post-op Diagnosis pain controlled c oral meds, nausea persists, controlled now Additional Comments >? two episodes incontinence last night. Plan Additional Comments antibiotics now stopped. Andrez Ortiz MD Jun 04, 2017 07:41
[2017-06-04 08:27] VITALS: BP 160/76
[2017-06-04] MEDS: Docusate 100mg cap ORAL SCH ×2 (09:00→17:41)
[2017-06-04] MEDS ORDERED: NaCl 3% 500ml 250 ML IV ONE ×2 (10:30)
--- NOTE | 2017-06-04 11:53 | GI Progress Note ---
Assessment/Plan Problems: (1) Uterine fibroid ICD Codes: D25.9 - Leiomyoma of uterus, unspecified SNOMED: 95186199 (2) Kidney tubular necrosis, acute ICD Codes: N17.0 - Acute kidney failure with tubular necrosis SNOMED: 56551462 (3) Iron deficiency ICD Codes: E61.1 - Iron deficiency SNOMED: 19736391 (4) Nausea & vomiting ICD Codes: R11.2 - Nausea with vomiting, unspecified SNOMED: 63656577 (5) Abdominal pain ICD Codes: R10.9 - Unspecified abdominal pain SNOMED: 00581907 Qualifiers: Qualified Codes: R10.84 - Generalized abdominal pain Status: unchanged Status Narrative Discussed with Dr. Gallo. Assessment/Plan APCT reviewed >> Air-fluid levels in the colon. This may be related to diarrhea >> dc stool softeners and laxatives iron deficiency >> venofer x 1 adv to renal diet soft zofran ATC electrolyte correction fu labs Subjective Subjective diarrhea abdominal pain Objective Last 24 Hour Vital Signs Date Time Temp Pulse Resp B/P Pulse Ox O2 Delivery O2 Flow Rate FiO2 06/04/17 08:27 97.2 66 20 160/76 97 Room Air 06/04/17 08:11 169/76 06/04/17 04:00 96.6 59 18 134/82 100 Room Air 06/04/17 00:22 97.5 63 18 135/78 99 Room Air 06/03/17 21:10 163/103 06/03/17 20:00 98.8 68 17 169/97 98 Room Air 06/03/17 16:00 99.0 60 20 148/77 99 Room Air 06/03/17 12:00 97.9 68 16 136/94 100 Room Air Intake and Output 06/03/17 06/04/17 19:00 07:00 Intake Total 600 ml 1025 ml Output Total 300 ml Balance 600 ml 725 ml Intake Oral 600 ml 240 ml IV Total 785 ml Output Urine Total 300 ml # Voids 3 # Bowel Movements 2 2 Laboratory Tests Test 06/04/17 05:25 White Blood Count 15.2 K/UL (4.8-10.8) H Red Blood Count 4.37 M/UL (4.20-5.40) Hemoglobin 9.4 G/DL (12.0-16.0) L Hematocrit 30.0 % (37.0-47.0) L Mean Corpuscular Volume 69 FL (80-99) L Mean Corpuscular Hemoglobin 21.6 PG (27.0-31.0) L Mean Corpuscular Hemoglobin Concent 31.5 G/DL (32.0-36.0) L Red Cell Distribution Width 12.7 % (11.6-14.8) Platelet Count 168 K/UL (150-450) Mean Platelet Volume 11.7 FL (6.5-10.1) H Neutrophils (%) (Auto) 81.1 % (45.0-75.0) H Lymphocytes (%) (Auto) 9.0 % (20.0-45.0) L Monocytes (%) (Auto) 8.4 % (1.0-10.0) Eosinophils (%) (Auto) 1.2 % (0.0-3.0) Basophils (%) (Auto) 0.4 % (0.0-2.0) Sodium Level 121 mEQ/L (135-145) L Potassium Level 3.3 mEQ/L (3.4-4.9) L Chloride Level 83 mEQ/L (98-107) L Carbon Dioxide Level 26 mEQ/L (20-30) Anion Gap 12 (5-15) Blood Urea Nitrogen 19 mg/dL (7-23) Creatinine 7.1 mg/dL (0.5-0.9) H Estimat Glomerular Filtration Rate 7.6 mL/min (>60) Glucose Level 98 mg/dL (74-106) Calcium Level 8.1 mg/dL (8.6-10.2) L Phosphorus Level 4.9 mg/dL (2.5-4.8) H Magnesium Level 2.3 mg/dL (1.7-2.5) Total Bilirubin 0.4 mg/dL (0.0-1.2) Aspartate Amino Transf (AST/SGOT) 17 U/L (5-40) Alanine Aminotransferase (ALT/SGPT) 10 U/L (3-33) Alkaline Phosphatase 98 U/L (35-104) Total Creatine Kinase 78 U/L (26-140) Total Protein 6.1 g/dL (6.6-8.7) L Albumin 2.8 g/dL (3.5-5.2) L Globulin 3.3 g/dL Albumin/Globulin Ratio 0.8 (1.0-2.7) L Height (Feet): 5 Height (Inches): 5.00 Weight (Pounds): 180 General Appearance: no apparent distress, alert Cardiovascular: normal rate Respiratory/Chest: normal breath sounds, no respiratory distress Abdominal Exam: normal bowel sounds, non tender, soft Extremities: normal range of motion Sandie Lee N.P. Jun 04, 2017 11:53
[2017-06-04 12:00] VITALS: BP 150/78
--- NOTE | 2017-06-04 14:34 | Nephrology Progress Note ---
Assessment/Plan Problem List: (1) Hyponatremia (2) KYLEIGH (acute kidney injury) (3) Kidney tubular necrosis, acute (4) Uterine fibroid (5) Nausea & vomiting (6) Hypokalemia Plan restrict fluids for hyponatremia, 3% nacl 06/04, recheck lab, stop all nonessential meds, trend lab Subjective Constitutional: Reports: weakness HEENT: Reports: no symptoms Genitourinary: Reports: no symptoms Neurologic/Psychiatric: Reports: no symptoms Objective Objective Last 24 Hour Vital Signs Date Time Temp Pulse Resp B/P Pulse Ox O2 Delivery O2 Flow Rate FiO2 06/04/17 12:00 98.1 57 18 150/78 99 Room Air 06/04/17 08:27 97.2 66 20 160/76 97 Room Air 06/04/17 08:11 169/76 06/04/17 04:00 96.6 59 18 134/82 100 Room Air 06/04/17 00:22 97.5 63 18 135/78 99 Room Air 06/03/17 21:10 163/103 06/03/17 20:00 98.8 68 17 169/97 98 Room Air 06/03/17 16:00 99.0 60 20 148/77 99 Room Air Intake and Output 06/03/17 06/04/17 19:00 07:00 Intake Total 600 ml 1025 ml Output Total 300 ml Balance 600 ml 725 ml Intake Oral 600 ml 240 ml IV Total 785 ml Output Urine Total 300 ml # Voids 3 # Bowel Movements 2 2 Laboratory Tests 06/04/17 05:25: White Blood Count 15.2H, Red Blood Count 4.37, Hemoglobin 9.4L, Hematocrit 30.0L , Mean Corpuscular Volume 69L, Mean Corpuscular Hemoglobin 21.6L, Mean Corpuscular Hemoglobin Concent 31.5L, Red Cell Distribution Width 12.7, Platelet Count 168, Mean Platelet Volume 11.7H, Neutrophils (%) (Auto) 81.1H, Lymphocytes (%) (Auto) 9.0L, Monocytes (%) (Auto) 8.4, Eosinophils (%) (Auto) 1.2, Basophils (%) (Auto) 0.4, Sodium Level 121L, Potassium Level 3.3L, Chloride Level 83L, Carbon Dioxide Level 26, Anion Gap 12, Blood Urea Nitrogen 19, Creatinine 7.1H, Estimat Glomerular Filtration Rate 7.6, Glucose Level 98, Calcium Level 8.1L, Phosphorus Level 4.9H, Magnesium Level 2.3, Total Bilirubin 0.4, Aspartate Amino Transf (AST/SGOT) 17, Alanine Aminotransferase (ALT/SGPT) 10, Alkaline Phosphatase 98, Total Creatine Kinase 78, Total Protein 6.1L, Albumin 2.8L, Globulin 3.3, Albumin/Globulin Ratio 0.8L Height (Feet): 5 Height (Inches): 5.00 Weight (Pounds): 180 General Appearance: WD/WN, no apparent distress, alert EENT: PERRL/EOMI, normal ENT inspection Neck: normal alignment, supple Cardiovascular: normal rate, regular rhythm Respiratory/Chest: lungs clear Abdomen: non tender, soft, no organomegaly Extremities: trace edema Neurologic: 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
[2017-06-04 15:14] LABS: CREATININE 7.9 mg/dL (0.5-0.9); GLOMERULAR FILTRATION RATE 6.8 mL/min (>60); POTASSIUM 3.7 mEQ/L (3.4-4.9)
[2017-06-04 16:00] VITALS: BP 164/75
[2017-06-04] MEDS: Sodium Chloride 1gm Tab ORAL SCH ×2 (16:24→19:22)
--- NOTE | 2017-06-04 17:23 | General Progress Note ---
Assessment/Plan Assessment/Plan 1. Status post uterine artery embolization. 2. Postoperative pain, nausea and vomiting. 3. Acute renal failure 4. Status post nephrectomy, as a renal donor. Cr still climbing disc w Dr Ortiz and Dr Arizmendi (nephrology) off IVF per Dr Arizmendi continue to monitor Subjective Constitutional: Denies: chills, diaphoresis, fever, malaise, weakness Gastrointestinal/Abdominal: Denies: nausea, vomiting Genitourinary: Denies: pain Allergies: Coded Allergies: PROCHLORPERAZINE (Verified Allergy, Unknown, 06/01/17) SHELLFISH DERIVED (Verified Allergy, Unknown, 06/01/17) Objective Last 24 Hour Vital Signs Date Time Temp Pulse Resp B/P Pulse Ox O2 Delivery O2 Flow Rate FiO2 06/04/17 16:52 164/75 06/04/17 12:00 98.1 57 18 150/78 99 Room Air 06/04/17 08:27 97.2 66 20 160/76 97 Room Air 06/04/17 08:11 169/76 06/04/17 04:00 96.6 59 18 134/82 100 Room Air 06/04/17 00:22 97.5 63 18 135/78 99 Room Air 06/03/17 21:10 163/103 06/03/17 20:00 98.8 68 17 169/97 98 Room Air Intake and Output 06/03/17 06/04/17 19:00 07:00 Intake Total 600 ml 1025 ml Output Total 300 ml Balance 600 ml 725 ml Intake Oral 600 ml 240 ml IV Total 785 ml Output Urine Total 300 ml # Voids 3 # Bowel Movements 2 2 Laboratory Tests 06/04/17 05:25: White Blood Count 15.2H, Red Blood Count 4.37, Hemoglobin 9.4L, Hematocrit 30.0L , Mean Corpuscular Volume 69L, Mean Corpuscular Hemoglobin 21.6L, Mean Corpuscular Hemoglobin Concent 31.5L, Red Cell Distribution Width 12.7, Platelet Count 168, Mean Platelet Volume 11.7H, Neutrophils (%) (Auto) 81.1H, Lymphocytes (%) (Auto) 9.0L, Monocytes (%) (Auto) 8.4, Eosinophils (%) (Auto) 1.2, Basophils (%) (Auto) 0.4, Sodium Level 121L, Potassium Level 3.3L, Chloride Level 83L, Carbon Dioxide Level 26, Anion Gap 12, Blood Urea Nitrogen 19, Creatinine 7.1H, Estimat Glomerular Filtration Rate 7.6, Glucose Level 98, Calcium Level 8.1L, Phosphorus Level 4.9H, Magnesium Level 2.3, Total Bilirubin 0.4, Aspartate Amino Transf (AST/SGOT) 17, Alanine Aminotransferase (ALT/SGPT) 10, Alkaline Phosphatase 98, Total Creatine Kinase 78, Total Protein 6.1L, Albumin 2.8L, Globulin 3.3, Albumin/Globulin Ratio 0.8L 06/04/17 14:48: Sodium Level 120L, Potassium Level 3.7, Chloride Level 83L, Carbon Dioxide Level 25, Anion Gap 12, Blood Urea Nitrogen 23, Creatinine 7.9H, Estimat Glomerular Filtration Rate 6.8, Glucose Level 117H, Calcium Level 8.0L Height (Feet): 5 Height (Inches): 5.00 Weight (Pounds): 180 General Appearance: no apparent distress, alert Neck: supple Cardiovascular: normal rate Respiratory/Chest: lungs clear Abdomen: non tender, soft Edema: no edema noted ENZO Smith Jun 04, 2017 17:23
[2017-06-04 20:00] VITALS: BP 151/78
[2017-06-04] MEDS ORDERED: Terazosin 1mg cap ORAL SCH (21:00)
[2017-06-05 00:24] VITALS: BP 151/82
[2017-06-05 04:00] VITALS: BP 156/79
[2017-06-05 06:20] LABS: BASOPHILS % (AUTO) 0.9 % (0.0-2.0); EOSINOPHILS % (AUTO) 1.7 % (0.0-3.0); LYMPHOCYTES % (AUTO) 11.6 % (20.0-45.0); MEAN CORPUSCULAR HEMOGLOBIN 21.2 PG (27.0-31.0); MEAN CORPUSCULAR HGB CONC 30.7 G/DL (32.0-36.0); MEAN CORPUSCULAR VOLUME 69 FL (80-99); MEAN PLATELET VOLUME 9.8 FL (6.5-10.1); NEUTROPHILS % (AUTO) 76.8 % (45.0-75.0); PLATELET COUNT 201 K/UL (150-450); RED BLOOD COUNT 4.51 M/UL (4.20-5.40); RED CELL DISTRIBUTION WIDTH 12.5 % (11.6-14.8); WHITE BLOOD COUNT 12.6 K/UL (4.8-10.8)
[2017-06-05 07:07] LABS: CALCIUM 8.3 mg/dL (8.6-10.2); CREATININE 9.5 mg/dL (0.5-0.9); GLOMERULAR FILTRATION RATE 5.5 mL/min (>60); MAGNESIUM 2.3 mg/dL (1.7-2.5); PHOSPHORUS 6.6 mg/dL (2.5-4.8); POTASSIUM 3.8 mEQ/L (3.4-4.9)
[2017-06-05 08:00] VITALS: BP 135/79
[2017-06-05] MEDS: Docusate 100mg cap ORAL SCH (09:07)
[2017-06-05] MEDS ORDERED: Sodium Chloride 1gm Tab ORAL ONE ×2 (09:30→11:30)
--- NOTE | 2017-06-05 11:10 | GI Progress Note ---
Assessment/Plan Problems: (1) Uterine fibroid ICD Codes: D25.9 - Leiomyoma of uterus, unspecified SNOMED: 91992943 (2) Kidney tubular necrosis, acute ICD Codes: N17.0 - Acute kidney failure with tubular necrosis SNOMED: 57884696 (3) Iron deficiency ICD Codes: E61.1 - Iron deficiency SNOMED: 41741822 (4) Nausea & vomiting ICD Codes: R11.2 - Nausea with vomiting, unspecified SNOMED: 47890053 (5) Abdominal pain ICD Codes: R10.9 - Unspecified abdominal pain SNOMED: 90443271 Qualifiers: Qualified Codes: R10.84 - Generalized abdominal pain Status: unchanged Status Narrative Discussed with Dr. Gallo. Assessment/Plan APCT reviewed >> Air-fluid levels in the colon. This may be related to diarrhea >> stool softeners and laxatives prn iron deficiency >> venofer x 1 fu nephro renal soft diet, tolerating zofran prn electrolyte correction fu hep panel fu labs Subjective Subjective diarrhea abdominal pain N/V better Objective Last 24 Hour Vital Signs Date Time Temp Pulse Resp B/P Pulse Ox O2 Delivery O2 Flow Rate FiO2 06/05/17 08:00 97.9 63 17 135/79 99 Room Air 06/05/17 04:00 98.6 64 18 156/79 99 Room Air 06/05/17 00:24 98.4 56 19 151/82 99 Room Air 06/04/17 20:00 99.0 60 20 151/78 99 Room Air 06/04/17 16:52 164/75 06/04/17 16:00 98.1 59 18 164/75 100 Room Air 06/04/17 12:00 98.1 57 18 150/78 99 Room Air Intake and Output 06/04/17 06/05/17 19:00 07:00 Intake Total 475 ml 300 ml Output Total 400 ml 500 ml Balance 75 ml -200 ml Intake Oral 200 ml 300 ml IV Total 275 ml Output Urine Total 400 ml 500 ml # Voids 4 3 # Bowel Movements 1 Laboratory Tests Test 06/04/17 14:48 06/05/17 05:10 Sodium Level 120 mEQ/L (135-145) L 125 mEQ/L (135-145) L Potassium Level 3.7 mEQ/L (3.4-4.9) 3.8 mEQ/L (3.4-4.9) Chloride Level 83 mEQ/L (98-107) L 87 mEQ/L (98-107) L Carbon Dioxide Level 25 mEQ/L (20-30) 24 mEQ/L (20-30) Anion Gap 12 (5-15) 14 (5-15) Blood Urea Nitrogen 23 mg/dL (7-23) 32 mg/dL (7-23) H Creatinine 7.9 mg/dL (0.5-0.9) H 9.5 mg/dL (0.5-0.9) H Estimat Glomerular Filtration Rate 6.8 mL/min (>60) 5.5 mL/min (>60) Glucose Level 117 mg/dL (74-106) H 86 mg/dL (74-106) Calcium Level 8.0 mg/dL (8.6-10.2) L 8.3 mg/dL (8.6-10.2) L White Blood Count 12.6 K/UL (4.8-10.8) H Red Blood Count 4.51 M/UL (4.20-5.40) Hemoglobin 9.6 G/DL (12.0-16.0) L Hematocrit 31.2 % (37.0-47.0) L Mean Corpuscular Volume 69 FL (80-99) L Mean Corpuscular Hemoglobin 21.2 PG (27.0-31.0) L Mean Corpuscular Hemoglobin Concent 30.7 G/DL (32.0-36.0) L Red Cell Distribution Width 12.5 % (11.6-14.8) Platelet Count 201 K/UL (150-450) Mean Platelet Volume 9.8 FL (6.5-10.1) Neutrophils (%) (Auto) 76.8 % (45.0-75.0) H Lymphocytes (%) (Auto) 11.6 % (20.0-45.0) L Monocytes (%) (Auto) 9.0 % (1.0-10.0) Eosinophils (%) (Auto) 1.7 % (0.0-3.0) Basophils (%) (Auto) 0.9 % (0.0-2.0) Phosphorus Level 6.6 mg/dL (2.5-4.8) H Magnesium Level 2.3 mg/dL (1.7-2.5) Hepatitis B Surface Antigen Pending Hepatitis B Surface Antibody Pending Hepatitis C Antibody Pending HIV (1&2) Antibody Rapid Negative (NEGATIVE) Height (Feet): 5 Height (Inches): 5.00 Weight (Pounds): 180 General Appearance: no apparent distress, alert Cardiovascular: normal rate Respiratory/Chest: normal breath sounds, no respiratory distress Abdominal Exam: normal bowel sounds, non tender, soft Extremities: normal range of motion Sandie Lee NLeslie Jun 05, 2017 11:10
[2017-06-05 12:00] VITALS: BP 145/70
[2017-06-05] MEDS ORDERED: COLACE100 MG ORAL (13:16)
[2017-06-05] MEDS ORDERED: NORCO 5-325 TA1 EACH ORAL (13:16)
--- NOTE | 2017-06-05 13:28 | Nephrology Progress Note ---
Assessment/Plan Problem List: (1) Hyponatremia (2) KYLEIGH (acute kidney injury) (3) Kidney tubular necrosis, acute (4) Uterine fibroid (5) Nausea & vomiting (6) Hypokalemia Plan restrict fluids for hyponatremia, nacl pills and fluid restrict for hyponatremia , K normal, can dc home and f/u office Subjective Constitutional: Reports: no symptoms HEENT: Reports: no symptoms Genitourinary: Reports: no symptoms Neurologic/Psychiatric: Reports: no symptoms Objective Objective Last 24 Hour Vital Signs Date Time Temp Pulse Resp B/P Pulse Ox O2 Delivery O2 Flow Rate FiO2 06/05/17 08:00 97.9 63 17 135/79 99 Room Air 06/05/17 04:00 98.6 64 18 156/79 99 Room Air 06/05/17 00:24 98.4 56 19 151/82 99 Room Air 06/04/17 20:00 99.0 60 20 151/78 99 Room Air 06/04/17 16:52 164/75 06/04/17 16:00 98.1 59 18 164/75 100 Room Air Intake and Output 06/04/17 06/05/17 19:00 07:00 Intake Total 475 ml 300 ml Output Total 400 ml 500 ml Balance 75 ml -200 ml Intake Oral 200 ml 300 ml IV Total 275 ml Output Urine Total 400 ml 500 ml # Voids 4 3 # Bowel Movements 1 Laboratory Tests 06/04/17 14:48: Sodium Level 120L, Potassium Level 3.7, Chloride Level 83L, Carbon Dioxide Level 25, Anion Gap 12, Blood Urea Nitrogen 23, Creatinine 7.9H, Estimat Glomerular Filtration Rate 6.8, Glucose Level 117H, Calcium Level 8.0L 06/05/17 05:10: Sodium Level 125L, Potassium Level 3.8, Chloride Level 87L, Carbon Dioxide Level 24, Anion Gap 14, Blood Urea Nitrogen 32H, Creatinine 9.5H, Estimat Glomerular Filtration Rate 5.5, Glucose Level 86, Calcium Level 8.3L, White Blood Count 12.6H, Red Blood Count 4.51, Hemoglobin 9.6L, Hematocrit 31.2L, Mean Corpuscular Volume 69L, Mean Corpuscular Hemoglobin 21.2L, Mean Corpuscular Hemoglobin Concent 30.7L, Red Cell Distribution Width 12.5, Platelet Count 201, Mean Platelet Volume 9.8, Neutrophils (%) (Auto) 76.8H, Lymphocytes (%) (Auto) 11.6L, Monocytes (%) (Auto) 9.0, Eosinophils (%) (Auto) 1.7, Basophils (%) (Auto) 0.9, Phosphorus Level 6.6H, Magnesium Level 2.3, Hepatitis B Surface Antigen [Pending], Hepatitis B Surface Antibody [Pending], Hepatitis C Antibody [Pending], HIV (1&2) Antibody Rapid Negative Height (Feet): 5 Height (Inches): 5.00 Weight (Pounds): 180 General Appearance: no apparent distress, alert EENT: normal ENT inspection Neck: non-tender Cardiovascular: normal rate Respiratory/Chest: chest wall non-tender, lungs clear Abdomen: non tender, soft Neurologic: stabilizer operator II-XII grossly normal NEVAEH MUELLER Jun 05, 2017 13:28
--- NOTE | 2017-06-05 13:33 | General Progress Note ---
Assessment/Plan Assessment/Plan 1. Status post uterine artery embolization. 2. Postoperative pain, nausea and vomiting. 3. Acute renal failure 4. Status post nephrectomy, as a renal donor. Cr still climbing disc w Dr Ortiz and Dr Arizmendi (nephrology) dc home with f/u 06/[address] Arizmendi no indications for dialysis at present Subjective Constitutional: Reports: no symptoms Allergies: Coded Allergies: PROCHLORPERAZINE (Verified Allergy, Unknown, 06/01/17) SHELLFISH DERIVED (Verified Allergy, Unknown, 06/01/17) Objective Last 24 Hour Vital Signs Date Time Temp Pulse Resp B/P Pulse Ox O2 Delivery O2 Flow Rate FiO2 06/05/17 08:00 97.9 63 17 135/79 99 Room Air 06/05/17 04:00 98.6 64 18 156/79 99 Room Air 06/05/17 00:24 98.4 56 19 151/82 99 Room Air 06/04/17 20:00 99.0 60 20 151/78 99 Room Air 06/04/17 16:52 164/75 06/04/17 16:00 98.1 59 18 164/75 100 Room Air Intake and Output 06/04/17 06/05/17 19:00 07:00 Intake Total 475 ml 300 ml Output Total 400 ml 500 ml Balance 75 ml -200 ml Intake Oral 200 ml 300 ml IV Total 275 ml Output Urine Total 400 ml 500 ml # Voids 4 3 # Bowel Movements 1 Laboratory Tests 06/04/17 14:48: Sodium Level 120L, Potassium Level 3.7, Chloride Level 83L, Carbon Dioxide Level 25, Anion Gap 12, Blood Urea Nitrogen 23, Creatinine 7.9H, Estimat Glomerular Filtration Rate 6.8, Glucose Level 117H, Calcium Level 8.0L 06/05/17 05:10: Sodium Level 125L, Potassium Level 3.8, Chloride Level 87L, Carbon Dioxide Level 24, Anion Gap 14, Blood Urea Nitrogen 32H, Creatinine 9.5H, Estimat Glomerular Filtration Rate 5.5, Glucose Level 86, Calcium Level 8.3L, White Blood Count 12.6H, Red Blood Count 4.51, Hemoglobin 9.6L, Hematocrit 31.2L, Mean Corpuscular Volume 69L, Mean Corpuscular Hemoglobin 21.2L, Mean Corpuscular Hemoglobin Concent 30.7L, Red Cell Distribution Width 12.5, Platelet Count 201, Mean Platelet Volume 9.8, Neutrophils (%) (Auto) 76.8H, Lymphocytes (%) (Auto) 11.6L, Monocytes (%) (Auto) 9.0, Eosinophils (%) (Auto) 1.7, Basophils (%) (Auto) 0.9, Phosphorus Level 6.6H, Magnesium Level 2.3, Hepatitis B Surface Antigen [Pending], Hepatitis B Surface Antibody [Pending], Hepatitis C Antibody [Pending], HIV (1&2) Antibody Rapid Negative Height (Feet): 5 Height (Inches): 5.00 Weight (Pounds): 180 General Appearance: no apparent distress Edema: no edema noted Generalized ENZO MAURER Jun 05, 2017 13:33
[2017-06-05] MEDS ORDERED: Tubing IV Secondary IV ONE (14:44)
[2017-06-05] MEDS ORDERED: D5NS 1000ml IV ONE (14:44)
--- NOTE | 2017-06-08 07:04 | Discharge Summary ---
Discharge Summary Hospital Course Date of Admission Jun 01, 2017 at 18:06 Date of Discharge Jun 05, 2017 at 14:45 Admitting Diagnosis abd pain HPI Miranda Herbert is a 41 year old female who was admitted on Jun 01, 2017 at 18:06 for Abdominal Pain Hospital Course dc summary #[id number] Discharge Medications New Medications: Docusate Sodium* (Colace*) 100 Mg Capsule 100 MG ORAL TWICE A DAY for 30 Days, #60 CAP Hydrocodone Bit/Acetaminophen 5-325* ([place] 5-325*) 1 Each Tablet 1 TAB ORAL Q4H PRN for 30 Days, #30 TAB Discontinued Medications: Amoxicillin/Potassium Clav 875-125 Mg Tab* (Amox Tr-K Clv 875-125 Mg Tab*) 1 Each Tablet 1 TAB ORAL EVERY 12 HOURS, TAB Ketorolac Tromethamine (Ketorolac Tromethamine) 10 Mg Tablet 10 MG PO DAILY, TAB Oxycodone Hcl/Acetaminophen 5-325* (Oxycodone-Acetaminophen 5-325*) 1 Each Tablet 1 TAB ORAL Q4H PRN for For Pain, TAB 0 Refills Polyethylene Glycol 3350* (Miralax*) 17 Gm Powd.pack 17 GM ORAL DAILY, PACKET Discharge Condition Upon Discharge: stable Discharge Disposition Patient was discharged to Home (01) Discharge Diagnoses: Discharge Instructions Discharge Instructions Special Instructions I have been assigned to complete a D/C Summary on this account. I was not involved in the patient management Consuelo Linda NP ([facility]) Jun 08, 2017 07:04
--- NOTE | 2017-06-09 05:45 | Discharge Summary 2 SIG ---
DATE OF ADMISSION: 06/01/2017 DATE OF DISCHARGE: 06/05/2017 REASON FOR ADMISSION: The patient is a 41-year-old female, who recently undergone uterine artery embolization on 05/29/2017 secondary to uterine fibroids, presented to emergency room with complaint of abdominal pain, nausea, vomiting, fever and chills. Subsequently, found the patient was afebrile. 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 Apparently, she had a CT with IV contrast scheduled soon for another reason and the patient refused contrast. Results of the CT of the abdomen revealed no abscess, normal postoperative changes. Urinalysis revealed hematuria, but no raquel acute urinary tract infection. Abdominal exam was nonfocal. Blood culture were drawn and the patient started on empiric antibiotics. The patient admitted for Medical/Surgical floor for further management. ADMITTING DIAGNOSES: 1. Status post uterine artery embolization, postoperative pain with nausea and vomiting. 2. Hypokalemia. 3. History of nephrectomy as renal donor. Of note, potassium was 3.0, was repleted. HOSPITAL STAY: The patient admitted. The patient started on the IV fluids and empiric antibiotics. Next day creatinine 2.2. The patient was on nonsteroid anti-inflammatory Toradol for pain management, which was immediately discontinued along with the vancomycin. Nephrology consult was requested. Pain management was addressed. Antiemetic provided as needed. GI consult, Surgery consult and Nephrology consult were requested. Per surgery, the patient was passing flap, has had bowel movement. Bowel regimen instituted. The patient voided freely. Pain management was addressed and the patient was closely observed. Steel Handler seen the patient and stated that acute renal failure likely secondary to combination of IV dye used during the embolization procedure along with the nonsteroid anti-inflammatory drug/Toradol. No evidence of rhabdomyolysis. CK within normal limits. Most likely etiology of acute renal failure according to [employer] [facility] [employer] is acute tubular necrosis again secondary to combination of the use of the IV dye and nonsteroid anti-inflammatory drugs. Steel Handler recommended to avoid dehydration and nephrotoxic gentle hydration. He also recommended to stop prophylactic antibiotic, as blood culture were preliminarily negative and avoid any unnecessary medication as well as . Despite of hydration, her creatinine was climbing up and creatinine was up to 9.5 on the day of discharge with BUN of 32. No decision for hemodialysis was made. The patient was discharged to follow up with [facility] as outpatient for further management. The patient also noted to have during the stay in the hospital, low sodium, the lowest 120. The patient given 3% sodium chloride. The patient started on fluid restriction and sent home on sodium chloride pills, sodium 125 prior to discharge. Potassium was repeated and was stable. GI followed the patient initially with intractable nausea. The patient started on Zofran around the clock as well as the Reglan as needed for breakthrough pain. Diet slowly advanced starting with clear liquids and advanced as tolerated. Bowel regimen instituted. Anemia workup initiated since noted the patient has microcytic anemia, which revealed low iron. The patient status post Venofer. Hemoglobin and hematocrit were stable prior to discharge, hemoglobin 9.6 and hematocrit 31.2. Of note, renal ultrasound was done, which revealed no finding to account for the given history of sudden onset of acute renal failure. Nuclear Medicine renal/SPECT scan was done, which revealed abnormal intrinsic renal function. The finding most likely represent intrinsic renal failure, likely acute tubular necrosis. The patient was able to tolerate diet. Leukocytosis down to 12.6 from initial 18.4, hemoglobin and hematocrit stable. Electrolytes managed. All consultants cleared the patient for discharge. Pain was controlled and the patient was able to have a bowel movement and voided freely. Tolerated diet. The patient was stable for discharge for home with follow up as outpatient with [facility] [employer] [facility] for further management of acute tubular necrosis. DISCHARGE DIAGNOSES: 1. Status post uterine artery embolization. 2. Postoperative pain with nausea and vomiting, resolved. 3. Hypokalemia, repleted. 4. History of nephrectomy as a renal donor. 5. Acute tubular necrosis. 6. Iron-deficiency anemia. 7. Hyponatremia. DISCHARGE MEDICATIONS: See medication reconciliation list. DISCHARGE INSTRUCTIONS: The patient discharged home. Follow up with the [facility] [employer] [facility] as outpatient for further management of acute tubular necrosis. Valente Vazquez M.D. I have been assigned to dictate discharge summary on this account and I was not involved in the patient's management. Consuelo estradaIngrid de jesus DR: SHIRA JOB#: [id number] CC:
== END 2017-06-05 14:45 | disposition home or self-care (01) | DRG 947 ==
LOC: EDSEX 16:28 → EMR 17:39 → 3E 18:06 → EDBEDREQ 18:27
DX: G89.18 Other acute postprocedural pain (principal); N17.0 Acute kidney failure with tubular necrosis; E87.1 Hypo-osmolality and hyponatremia; E87.6 Hypokalemia; R10.9 Unspecified abdominal pain; R11.2 Nausea with vomiting, unspecified; Z90.5 Acquired absence of kidney; Z98.890 Other specified postprocedural states; D50.9 Iron deficiency anemia, unspecified; E86.0 Dehydration; Z88.8 Allergy status to other drugs, medicaments and biological substances
CPT/HCPCS: 36415; 74176; 76775; 78710; 80048; 80053; 81003; 81025; 82550; 82570; 83540; 83550; 83690; 83735; 83935; 84100; 84300; 84443; 84550; 85007; 85025; 86703; 86803; 87040; 87340; 87517; 89050; 93005; J2405